=== PATIENT | female | born 1965 | race Caucasian/White ===

== ENCOUNTER 2020-09-14 11:15 | Emergency (ER) | payer OTHER ==
[~2020-09-14] VITALS: Ht 172.7 cm; Wt 52.2 kg
[2020-09-14] MEDS ORDERED: ATENOLOL 25 MG25 M1 PO (11:27)
[2020-09-14] MEDS ORDERED: BUSPIRONE HCL10 MG PO (11:27)
[2020-09-14] MEDS ORDERED: XANAX 0.5 MG0.5 M1 PO (11:28)
[2020-09-14] MEDS ORDERED: NORCO5 PO (12:52)
[2020-09-14] MEDS ORDERED: IBUPROFEN 800800 M1 PO (12:52)
[2020-09-14 13:04] VITALS: BP 130/74
== END 2020-09-14 13:05 | disposition home or self-care (01) ==
LOC: M.ERS 11:15
DX: M25.462 Effusion, left knee (principal); F12.90 Cannabis use, unspecified, uncomplicated; Z88.0 Allergy status to penicillin; Z79.899 Other long term (current) drug therapy